=== PATIENT | male | born 1995 | race Caucasian/White ===

== ENCOUNTER 2018-12-30 11:24 | Emergency (ER) | payer BC, MEDICAID ==
[2018-12-30] MEDS ORDERED: Lidocaine 1% with EPINEPHrine 1:100,000 20 ML MDV INJECT ONE (12:03)
--- NOTE | 2018-12-30 12:04 | EDM.PDOC ---
ED HPI GENERAL MEDICAL PROBLEM - General Chief Complaint: Laceration Stated Complaint: CUT RT HAND Time Seen by Provider: 12/30/18 12:01 Source of Information: Reports: Patient History Limitations: Reports: No Limitations - History of Present Illness INITIAL COMMENTS - FREE TEXT/NARRATIVE: Patient comes emergency department today with complaints of an injury to his right hand. Just prior to arrival the patient cut the dorsal aspect of his right third finger on the right hand on a chain link fence. This happened just prior to arrival. He is unsure of when his last shot was. He denies any paresthesias to the right middle finger. He denies any other injury. - Related Data Home Meds: Home Meds Cholecalciferol (Vitamin D3) [Vitamin D] 5,000 unit PO DAILY 12/30/18 [History] Magnesium 200 mg PO DAILY 12/30/18 [History] Methylphenidate HCl [Methylphenidate ER] 36 mg PO DAILY 12/30/18 [History] OXcarbazepine [Oxcarbazepine] 600 mg PO DAILY 12/30/18 [History] Tacrolimus 2 mg PO BID 12/30/18 [History] ED ROS GENERAL - Review of Systems Review Of Systems: ROS reveals no pertinent complaints other than HPI. ED EXAM, SKIN/RASH Exam: See Below Exam Limited By: No Limitations General Appearance: Alert, WD/WN, No Apparent Distress Peripheral Pulses: 2+: Radial (L), Radial (R) Extremities: No: Normal Inspection (On the dorsal surface of the right third finger on the proximal phalanx there is a transverse laceration approximately 2 cm in length. It is minimally gaping. It does extend into the subcutaneous tissue. He is able to flex and extend at the MCP PIP and DIP joints. The rest of the right hand is atraumatic.) ED SKIN PROCEDURES - Laceration/Wound Repair Right Hand Lac/Wound length In cm: 2.5 Appearance: Subcutaneous, Linear Distal NVT: Neuro & Vascular Intact, No Tendon Injury Anesthetic Type: Local Local Anesthesia - Lidocaine (Xylocaine): 1% with EPI Local Anesthetic Volume: 3cc Skin Prep: Chlorhexidine (Hibiciens), Saline Exploration/Debridement/Repair: Wound Explored, In a Bloodless Field, Explored to Base Closed with: Sutures Suture Size: 4-0 Suture Type: Nylon # of Sutures: 4 Drain Placement: No Sterile Dressing Applied: Provider Tetanus Status Addressed: Yes Complications: No Course - Vital Signs Last Recorded V/S: Last Vital Signs Temp 36.9 C 12/30/18 12:16 Pulse 80 12/30/18 12:16 Resp 16 12/30/18 12:16 BP 123/62 12/30/18 12:16 Pulse Ox 99 12/30/18 12:16 - Orders/Labs/Meds Meds: Medications Discontinued Medications Generic Name Dose Route Start Last Admin Trade Name Shereen PRN Reason Stop Dose Admin Lidocaine/Epinephrine 20 ml 12/30/18 12:03 12/30/18 12:09 Xylocaine 1% With Epinephrine 1:100,000 INJECT 12/30/18 12:04 20 ml ONETIME ONE Administration Departure - Departure Time of Disposition: 12:35 Disposition: Home, Self-Care 01 Clinical Impression: Finger laceration Qualifiers: Encounter type: initial encounter Finger: middle finger Damage to nail status: without damage Foreign body presence: without foreign body Laterality: right Qualified Code(s): S61.212A - Laceration without foreign body of right middle finger without damage to nail, initial encounter - Discharge Information Instructions: Laceration Care, Adult, [id number], Pain Medicine Instructions , [id number] Forms: ED Department Discharge Additional Instructions: Wash hands twice daily with soap and water. Apply bacitracin and dressing until healed. Recheck for any signs for infection. Sutures out in 10 days Emergency department if new or worsening symptoms.. - Assessment/Plan Assessment:: Finger laceration 2.5 sutured. Plan: Wash hands twice daily with soap and water. Apply bacitracin and dressing until healed. Recheck for any signs for infection. Sutures out in 10 days Emergency department if new or worsening symptoms..
== END 2018-12-30 12:50 | disposition home or self-care (01) ==
LOC: DL.ED 11:24
DX: S61.212A Laceration without foreign body of right middle finger without damage to nail, initial encounter (principal); Z79.899 Other long term (current) drug therapy; W26.8XXA Contact with other sharp object(s), not elsewhere classified, initial encounter
CPT/HCPCS: 12001; 99282